=== PATIENT | male | born 1945 | race Caucasian/White ===

== ENCOUNTER → 2020-08-15 18:05 | Outpatient (CLI) | payer MEDICARE, OTHER, SELFPAY ==
--- NOTE | 2020-08-15 | IMM_PTH ---
PATIENT: DELFINO GOLDSMITH LOC: EN U#:[id number] AGE/SX: 79/M ROOM: RE08/15/[address]: Dr. Nicolas Lo MD : 1945 BED: DIS: SPEC #: [id number] RECD: 08/17/20 12:57 STATUS: LIN REQ #: [id number] RICHELLE: 08/15/20 00:[address]: Nicolas Lo DEPT: IMMUNOHISTOCHEMISTRY RECD BY: Lillie Hart ENTERED: 08/17/20 13:03 SP TYPE: IMMUNO OTHR DR: Dr. Easton Barkley MD Tissues: F - PROSTATE LEFT Procedures: P40 (add) 34BE12 (initial) PHYSICIAN & INSTITUTION [place] [id number] SPECIMEN INFORMATION: Tissue Source: Left prostate, base, core biopsy Clinical Info: Elevated PSA Specimen Number: [id number] CPT code: 28000 METHODOLOGY: Deparaffinized sections of prefer/formalin-fixed tissue or PAP/DQ stained slides are incubated with monoclonal/polyclonal antibodies/oligonucleotide probes. Localization is made via biotin free immunoperoxidase method. Appropriate controls are performed and reacted as expected. Results on target cell population are indicated in the following table: RESULTS: ANTIBODY / CLONE RESULT Block F P40 (BC28) negative 34BE12 (34BE12) negative These tests were developed and their performance characteristics determined by [facility]. They may not have been cleared or approved by the U.S. Food and Drug Administration. The FDA has determined that such clearance or approval is not necessary. The above immunohistochemical/dualISH markers are ordered and reviewed by the Pathologist. INTERPRETATION: F. Left prostate, base, core biopsy: Adenocarcinoma. TIMOTHY:mirtha 08/18/2020
--- NOTE | 2020-08-15 04:15 | PROSBIL_PTH ---
PATIENT: DELFINO GOLDSMITH LOC: EN U#:[id number] AGE/SX: 79/M ROOM: RE08/15/[address]: Dr. Nicolas Lo MD : 1945 BED: DIS: SPEC #: [id number] RECD: 08/16/20 08:33 STATUS: LIN ALONZO #: [id number] RICHELLE: 08/15/20 04:[address]: Nicolas Lo DEPT: SURGICAL PATHOLOGY RECD BY: Elayne Carrillo Tissues: A - PROSTATE RIGHT B - PROSTATE RIGHT C - PROSTATE RIGHT D - PROSTATE LEFT E - PROSTATE LEFT F - PROSTATE LEFT Procedures: PROSTATE BX HEADER OPERATION: Prostate biopsy PRE-OP DIAGNOSIS: Elevated PSA TISSUE SUBMITTED: A - Right apex, B - Right mid, C - Right base, D - Left apex, E - Left mid, F - Left base MICROSCOPIC DIAGNOSIS A. Right prostate, apex, core biopsy: Prostatic tissue, negative for malignancy. Focal basal cell hyperplasia and mild acute and chronic inflammation. B. Right prostate, mid, core biopsy: Prostatic tissue, negative for malignancy. Focal basal cell hyperplasia and mild acute and chronic inflammation. C. Right prostate, base, core biopsy: Prostatic tissue, negative for malignancy. Focal basal cell hyperplasia and mild acute and chronic inflammation. D. Left prostate, apex, core biopsy: Prostatic tissue, negative for malignancy. Focal basal cell hyperplasia. E. Left prostate, mid, core biopsy: Prostatic tissue, negative for malignancy. F. Left prostate, base, core biopsy: Prostatic adenocarcinoma. [place] grade: 3+3=6 Number of cores involved: 1/2 Proportion of tissue involved: ~5 to 10% Perineural invasion: Not identified. Greatest tumor length: 0.2 cm Focal high-grade prostatic intraepithelial neoplasia (HGPIN). Focal basal cell hyperplasia and mild acute and chronic inflammation. See comment. SJ:rg 08/17/2020 COMMENT F. Immunohistochemistry ([id number]) supports the above diagnosis. Case has been reviewed in consultation with Dr. Barnett who concurs with the above diagnosis. IDC:AM MICROSCOPIC DESCRIPTION Slides are reviewed. GROSS DESCRIPTION A - Received is one container designated prostate, right apex. The specimen consists of two elongated fragments of light chavez-white soft tissue measuring 1.5 and 1.8 cm in length and 0.1 cm in diameter. The specimen is totally submitted in one cassette. B - Received is one container designated prostate, right mid. The specimen consists of two elongated fragments of light chavez-white soft tissue measuring 0.5 and 1.3 cm in length and 0.1 cm in diameter. The specimen is totally submitted in one cassette. C - Received is one container designated prostate, right base. The specimen consists of two elongated fragments of light chavez-white soft tissue measuring 1 and 1.2 cm in length and 0.1 cm in diameter. The specimen is totally submitted in one cassette. D - Received is one container designated prostate, left apex. The specimen consists of three elongated fragments of light chavez-white soft tissue each measuring 1 cm in length and 0.1 cm in diameter. The specimen is totally submitted in one cassette. E - Received is one container designated prostate, left mid. The specimen consists of three elongated fragments of light chavez-white soft tissue measuring 0.5 to 1.8 cm in length and 0.1 cm in diameter. The specimen is totally submitted in one cassette. F - Received is one container designated prostate, left base. The specimen consists of two elongated fragments of light chavez-white soft tissue measuring 1 and 1.5 cm in length and 0.1 cm in diameter. The specimen is totally submitted in one cassette. / SJ:rg 08/16/2020 TC:0 CPT: G0146
== END ==
PROVIDERS: PCP Family Medicine; Referring Provider Urology; Visit Provider Urology
DX: R97.20 Elevated prostate specific antigen [PSA] (principal)
CPT/HCPCS: 88305; 88341; 88342; G0416

== ENCOUNTER → 2021-08-14 | Outpatient (CLI) | payer MEDICARE, OTHER, SELFPAY ==
--- NOTE | 2021-08-14 13:13 | MRI_ITS ---
PROSTATE MRI; 3D POST PROCESSING HISTORY/INDICATION: Elevated PSA TECHNIQUE: Multiplanar, multisequence imaging of the pelvis in accordance with PIRADS recommendations before and after intravenous administration of 19 mL Dotarem on a 1.5 TE platform using external phased array coil. Dedicated 3 plane small field of view T2 FSE, axial diffusion-weighted imaging with width B values 50-800 s/mm2 and calculated t=4440 s/mm2 and ADC map; and axial 3-D dynamic contrast enhanced T1 weighted images with temporal resolution in 3 mm slice thickness in addition to full pelvis postcontrast T1-weighted imaging. 3D post processing was performed on an independent workstation (Txt4) for purposes of volumetric evaluation of the prostate gland and localization of below described nodule, which was marked on reconstructed images for anticipated image guided biopsy by Urology service. COMPARISON:None FINDINGS: Size: 3.7 x 4.9 x 3.6 (Lx W x H) cm for 33.9 cubic cm. Quality: Excellent Hemorrhage: None Peripheral zone: Inhomogenous. Focal lesion as below. Transition zone: Moderate heterogeneity consistent with prostatic hyperplasia. . Lesion #1: Location: Left posterior peripheral zone on image 15 of series 5. Size: 0.89 x 1.3 cm T2: Moderately hypointense lesion of the posterior left peripheral zone just left of midline, medial and slightly inferior to the neurovascular bundle. DWI: focal markedly hyperintense on high b-value DWI (image 104 series 7) and markedly hypointense on ADC (image 17 series 701) with extraprostatic extension, sequence category 4/5 DCE: focal early enhancement, positive Prostate margin: Smooth without extraprostatic extension Lesion overall PI-RADS: 4/5 Neurovascular bundles: Not clearly involved but nodule immediately posterior and inferior to the neurovascular bundle Seminal vesicles: not involved Lymph nodes: no lymphadenopathy Bones: no osseous metastases suggested Other pelvic organs: normal MRI/Pelvis W/WO Contrast IMPRESSION: 1. PI-RADS 4 ? High (clinically significant cancer is likely to be present) . PI?RADSR v2.1 Assessment Categories PI-RADS 1 ? Very low (clinically significant cancer is highly unlikely to be present) PI-RADS 2 ? Low (clinically significant cancer is unlikely to be present) PI-RADS 3 ? Intermediate (the presence of clinically significant cancer is equivocal) PI-RADS 4 ? High (clinically significant cancer is likely to be present) PI-RADS 5 ? Very high (clinically significant cancer is highly likely to be present) Electronically Signed: Ramakrishna Gayle MD ([place]) at 9:34 EDT Reading Location ID and State: / [place] , Service support ,
[2021-08-14 14:26] LABS: CREATININE FINGERSTICK 1.6 mg/dL (0.70-1.30)
== END | disposition home or self-care (01) ==
LOC: MRI 13:01
PROVIDERS: PCP Family Medicine; Visit Provider Urology
DX: M54.17 Radiculopathy, lumbosacral region (principal)
CPT/HCPCS: 72197; A9575

== ENCOUNTER → 2021-08-28 | Outpatient (CLI) | payer MEDICARE, OTHER, SELFPAY ==
--- NOTE | 2021-08-28 | PROSBIL_PTH ---
PATIENT: DELFINO GOLDSMITH LOC: EN U#:[id number] AGE/SX: 76/M ROOM: RE08/28/[address]: Dr. Nicolas Lo MD : 1945 BED: DIS: 08/28/2021 SPEC #: [id number] RECD: 08/28/21 18:17 STATUS: LIN REKindra #: [id number] RICHELLE: 08/28/21 00:[address]: Nicolas Lo DEPT: SURGICAL PATHOLOGY RECD BY: Ricky Gan ENTERED: 08/29/21 08:06 SP TYPE: PROST BX YOLANDA DR: Dr. Easton Barkley MD Tissues: A - PROSTATE RIGHT B - PROSTATE RIGHT C - PROSTATE RIGHT D - PROSTATE LEFT E - PROSTATE LEFT F - PROSTATE LEFT Procedures: PROSTATE BX HEADER OPERATION: Prostate biopsy PRE-OP DIAGNOSIS: Elevated PSA TISSUE SUBMITTED: A - Right apex, B - Right mid, C - Right base, D - Left apex, E - Left mid, F - Left base MICROSCOPIC DIAGNOSIS A. Right prostate, apex, core biopsy: Mild acute inflammation. Glandular atrophy. B. Right prostate, mid, core biopsy: Glandular atrophy and minimal acute inflammation. C. Right prostate, base, core biopsy: Glandular atrophy and focal acute inflammation. D. Left prostate, apex, core biopsy: Glandular atrophy and minimal chronic inflammation. E. Left prostate, mid, core biopsy: Mild acute inflammation and glandular atrophy. F. Left prostate, base, core biopsy: Adenocarcinoma. Allie grade: 9 (5+4) Cores involved: 2 out of 2 Tissue involved: 75% Greatest tumor length: 11 millimeters AM:mirtha 08/30/2021 COMMENT Case has been reviewed in consultation with Dr. Delarosa who concurs with the above diagnosis. IDC:SJ MICROSCOPIC DESCRIPTION Slides are reviewed. GROSS DESCRIPTION A - Received is one container designated prostate, right apex. The specimen consists of two elongated fragments of light chavez-white soft tissue each measuring 1 cm in length and 0.1 cm in diameter. The specimen is totally submitted in one cassette. B - Received is one container designated prostate, right mid. The specimen consists of two elongated fragments of light chavez-white soft tissue each measuring 1.5 cm in length and 0.1 cm in diameter. The specimen is totally submitted in one cassette. C - Received is one container designated prostate, right base. The specimen consists of two elongated fragments of light chavez-white soft tissue each measuring 1 cm in length and 0.1 cm in diameter. The specimen is totally submitted in one cassette. D - Received is one container designated prostate, left apex. The specimen consists of two elongated fragments of light chavez-white soft tissue each measuring 1.1 cm in length and 0.1 cm in diameter. The specimen is totally submitted in one cassette. E - Received is one container designated prostate, left mid. The specimen consists of two elongated fragments of light chavez-white soft tissue measuring 1.3 and 1.5 cm in length and 0.1 cm in diameter. The specimen is totally submitted in one cassette. F - Received is one container designated prostate, left base. The specimen consists of two elongated fragments of light chavez-white soft tissue each measuring 1.5 cm in length and 0.1 cm in diameter. The specimen is totally submitted in one cassette. / SJ:rg 08/29/2021 TC:0 CPT: G0146
== END | disposition home or self-care (01) ==
LOC: LABSPEC 16:28
PROVIDERS: PCP Family Medicine; Referring Provider Urology; Visit Provider Urology
DX: R97.20 Elevated prostate specific antigen [PSA] (principal)
CPT/HCPCS: 88305; G0416